=== PATIENT | female | born 1950 | race Caucasian/White ===

== ENCOUNTER → 2025-08-24 09:32 | Outpatient (REF) | payer MEDICARE, OTHER, SELFPAY ==
[2025-08-24 10:08] LABS: Hematocrit 45.0 % (37.0-47.0); Hemoglobin 15.1 g/dL (12.0-16.0); Mean Corp Hgb Conc. 33.6 g/dL (33.0-37.0); Mean Corpuscular Volume 93.0 fL (81.0-99.0); Nucleated Red Blood Cells % 0 %; Platelet Count 258 10^3/uL (130-400); Red Cell Dist. Width 12.3 % (11.5-14.5)
[2025-08-24 10:25] LABS: INR 1.38; PT 17.2 Sec (11.4-14.6)
[2025-08-24 10:48] LABS: ALT (SGPT) 22 U/L (0-35); AST (SGOT) 26 U/L (14-36); Albumin 4.7 g/dl (3.5-5.0); Alkaline Phosphatase 106 U/L (38-126); Blood Urea Nitrogen 17 mg/dl (7-17); Calcium 9.4 mg/dl (8.4-10.2); Carbon Dioxide 27 mmol/L (22-30); Chloride 105 mmol/L (98-107); Glucose 81 mg/dl (70-99); Magnesium 2.1 mg/dl (1.6-2.3); Potassium 4.1 mmol/L (3.5-5.1); Sodium 137 mmol/L (135-145); Total Protein 8.3 g/dl (6.3-8.2); eGFR > 60.00
== END ==
LOC: SDSPAT 09:32
PROVIDERS: ATTENDING PHYSICIAN Internal Medicine Cardiovascular Disease; FAMILY PHYSICIAN Nurse Practitioner Family; REFERRING PHYSICIAN Internal Medicine Cardiovascular Disease
DX: I48.19 Other persistent atrial fibrillation (principal)
CPT/HCPCS: 36415; 75572; 80053; 83735; 85025; 85610; 86850; 86900; 86901; 93005; Q9967

== ENCOUNTER 2025-09-07 06:39 | Day surgery (SDC) | payer MEDICARE, OTHER, SELFPAY ==
[2025-09-07] MEDS: ELIQUIS 5 MG PO (10:31)
== END 2025-09-07 10:46 | disposition home or self-care (01) ==
LOC: CATH 06:39
PROVIDERS: ATTENDING PHYSICIAN Nuclear Medicine Nuclear Cardiology; FAMILY PHYSICIAN Nurse Practitioner Family; OTHER PHYSICIAN Internal Medicine Cardiovascular Disease
DX: I08.3 Combined rheumatic disorders of mitral, aortic and tricuspid valves (principal); I70.0 Atherosclerosis of aorta; I08.8 Other rheumatic multiple valve diseases
CPT/HCPCS: 93312; 93320; 93325

== ENCOUNTER 2025-09-15 07:20 | Day surgery (SDC) | payer MEDICARE, OTHER, SELFPAY ==
[2025-08-24 09:43] VITALS: BMI 30.5
[2025-09-15] VITALS (21 sets, daily range): BP systolic 104–154; BP diastolic 65–97
[2025-09-15 10:45] LABS: ACT-LR - POC 314 Seconds (116-155)
--- NOTE | 2025-09-15 11:16 | ITS.CL.ABL ---
Dye Operator - Ablation
Ablation
Procedure Report:
ELECTROPHYSIOLOGY ABLATION STUDY
DATE:: September 15, 2025�����������������������������REFERRING: Dr. Sheldon Moya
INDICATION: Persistent supraventricular tachycardia in the form of atrial fibrillation.��Tachycardia induced cardiomyopathy
HISTORY: See H and P.� As above
ANTIARRHYTHMIC DRUG: Discussed class I class III antiarrhythmic drug therapy patient opted for procedure
PRE-PROCEDURE JOSELYN: No intracardiac thrombus on intracardiac ultrasound
PRESENTING RHYTHM: Atrial fibrillation
'TIME-OUT':��called and confirmed.
SEDATION/ANESTHESIA:��provided via the anesthesia department using general anesthesia (LMA).
INTRAVENOUS/ARTERIAL ACCESS:
Right femoral venous -8Fr
Left femoral venous - 8 Fr, 6 Fr
Sqcbhj-vm-gahek suture bilaterally
Ultrasound guidance for bilateral femoral vein access was utilized by me to obtain access with demonstration of normal anatomy
CHADS-VASC Score:
HAS-Bled Score
PROCEDURE:
1.��A decapolar CS catheter was placed within the CS for mapping and pacing.��This was also used as the reference catheter for the 3-D map.
2. The intracardiac ultrasound catheter was positioned in the RA to identify the FO for targeting of transseptal puncture, assist��in identification of the pulmonary vein ostia, monitoring pre and post ablation pulmonary vein flow velocities,
monitoring for 'bubble' formation during RF application as a sign of thermal injury,��and to monitor for pericardial effusion during mapping and ablation procedure.���Left atrial size, LV ejection fraction, and pulmonary vein flows were monitored
pre and post ablation procedure. The other valves were inspected and found to be free of significant regurgitation or stenosis. The patient did have prominent trabeculations in the septal and apical septal LV which was segmental.
3.��Half of the calculated heparin bolus was administered prior to the first transeptal puncture.��Transseptal puncture was performed to diagnose RA and LA pressure so that safety of LA mapping and ablation could be further assessed, and to access
the left atrium and pulmonary veins for mapping and ablation.��This entailed advancing an 16.8 Fijian sheath, RF wire with dilator into the superior vena cava and withdrawing both (monitoring intracardiac ultrasound, fluoroscopy and tip pressure)
with the tip oriented toward the atrial septum.��The fossa ovalis was engaged (indicated by sudden displacement of the sheath tip as well as tenting of the fossa seen on intracardiac ultrasound).��Left atrial access required a pass with the
Brockenbrough needle extended.��Left atrial catheter position was confirmed by pressure monitoring (RA mean pressure 4 mm Hg and LA mean presure 8 mm Hg and a procedure 10 mmHg with 1 L of hydration), LA saturation (99%),��as well as
fluoroscopy.��The sheath was advanced over the dilator and positioned in the left atrium.��This procedure was repeated for the Agilis sheath.��The remainder of the calculated heparin bolus was administered and heparin was
infused to maintain ACT at 300 -350 seconds throughout the case.
4.��RA pacing was performed via the proximal decapolar poles and LA pacing was performed via the distal decapolr poles.
5. A quadrapolar catheter was first positioned at the His position for His Bundle recording which was tagged via the 3-D Navex sytem, and then passed to the RVA for RV pacing and recording.
6. The Penta spline antegrade catheter placed in each of the LIPV, LSPV, RSPV and the RIPV.��
7.��Next, a 3-D map was created using Navex.���A 3-D reconstructed CT image was compared to the 3-D Navex map to assist in anatomic interpretation, mapping and ablation.��The CT image and the NavX image were fused.
8. A total of 52 lesions were given and all of in basket pose to each of the 4 pulmonary veins bringing about entrance block. Atrial fibrillation persisted and in flower pose roof posterior wall and left atrial floor in separate linear lesions was
addressed and there was entrance block in the roof posterior wall and floor of the left atrium. Atrial fibrillation persisted with additional substrate modification in the inferoseptal region and floor of the left atrium towards the left veins. We
then cardioverted the patient to sinus rhythm and entrance and exit block was confirmed in all 4 pulmonary veins as well as the roof posterior wall floor of the left atrium. EP study post cardioversion demonstrated no other nonpulmonary vein
triggers for atrial fibrillation.
9. Normal sinus and AV node function as noted.
TOTAL FLOURO TIME: 12.2 minutes
TOTAL RF DURATION: 0 minutes
REVERSAL OF HEPARIN: 35 mg of protamine, slow IV administration
COMPLICATIONS:
None
Intracardiac US shows no pericardial effusion post ablation.
SUMMARY:��
Complex left atrial mapping and ablation.
Isolation of all 4 pulmonary veins as well as the roof posterior wall floor of the left atrium.
RECOMMENDATIONS:
1. Ambulate in 4 hours
2. Resume anticoagulation
3.��Consider same-day discharge
4.� Outpatient echocardiogram in 3 months
Copy to: Dr. Sheldon Moya at [facility] cardiology
[2025-09-15] MEDS: TYLENOL 650 MG PO ×2 (13:23→18:03)
[2025-09-15] MEDS: ANESTHETIC LOZENGE 1 LOZENGE PO (14:31)
--- NOTE | 2025-09-15 14:51 | W.PN.UPDATE ---
Addendum entered and electronically signed by AZUL Hernandez 09/15/25 16:11:
Pt sats unable to go above 90% on RA, amb pulse ox 87-88% on RA, lungs clear but diminished b/l bases, denies sob with ambulation. She denies lung history and never smoked. On arrival sats 88% on RA, which may be her baseline as she has not seen PCP
in years. We will give 20iv lasix now and check CXR, will admit overnight for observation. Will monitor closely, plan reviewed with pt/ and Dr. Prado at bedside and agrees with plan.
Original Note:
Update Note
Progress Note Update
75 yo WF s/p PVI (same day). She denies cp, sob, luis fernando clears, EKG SR 1deg AVB, b/l groins c/d/i, soft. She will resume Eliquis tonight. Activity restrictions reviewed. She will f/u Dr. Moya in 1 mo. She is for d/c home after 4pm if groins stable.
[2025-09-15] MEDS: LASIX 20 MG IV (16:13)
--- NOTE | 2025-09-15 16:24 | PTCARENOTE ---
Pt's sats 88-89 RA. No FERNANDEZ, few bibase rales. Mendy [employer] SALES MANAGER notified, walked with pt on pulse ox. Sats 87 ambulatory. Lasix 20 MG IV given as ordered. Pt placed back on 1 L O2 and now sating 92-95 %. Dr. Prado also evaluated pt and updated family on
plan of care: CXR, diuresis and overnight stay. Family agreeable. All other systems benign. No bleeding with or post ambulation. Voided small amount.
[2025-09-15] MEDS: LIPITOR 20 MG PO (17:27)
[2025-09-15] MEDS: COZAAR 25 MG PO (17:27)
--- NOTE | 2025-09-15 17:53 | PTCARENOTE ---
Patient received from recovery s/p PVI. Right and left groin punctures with gauze and tegaderm C/D/I, no evidence of hematoma, no ecchymosis, surrounding area soft to palpation. Pedal pulses palpable. The patient denies chest pain or pressure.
Denies feeling lightheaded or dizzy. Denies SOB/FERNANDEZ. SR with first degree AVB on telemetry. Oxygen saturation initially 91% on 1L but increased to 94% on 1L. Patient OOB to chair, standby assist. Oriented to room and unit. Call dill within reach.
Care ongoing.
[2025-09-15] MEDS: ELIQUIS 5 MG PO (19:21)
--- NOTE | 2025-09-15 23:34 | PTCARENOTE ---
Pt NSR on monitor, VSS. Pt denies pain or SOB. 91% (finger) and 95%(ear) on 1L. B/L groin dsg C/D/I. Pt ambulates with x 1 assist. Call dill within reach
[2025-09-16 03:39] VITALS: BP 102/60
[2025-09-16 03:52] VITALS: BMI 30.3
[2025-09-16 04:18] LABS: Hematocrit 37.5 % (37.0-47.0); Hemoglobin 12.9 g/dL (12.0-16.0); Mean Corp Hgb Conc. 34.4 g/dL (33.0-37.0); Mean Corpuscular Volume 92.4 fL (81.0-99.0); Platelet Count 200 10^3/uL (130-400); Red Cell Dist. Width 12.8 % (11.5-14.5)
[2025-09-16 04:29] LABS: Blood Urea Nitrogen 20 mg/dl (7-17); Calcium 9.0 mg/dl (8.4-10.2); Carbon Dioxide 26 mmol/L (22-30); Chloride 106 mmol/L (98-107); Estimated Creatinine Clearance 58 ml/min; Glucose 121 mg/dl (70-99); Magnesium 2.0 mg/dl (1.6-2.3); Potassium 4.1 mmol/L (3.5-5.1); Sodium 135 mmol/L (135-145); eGFR > 60.00
[2025-09-16 08:00] VITALS: BP 101/52
--- NOTE | 2025-09-16 08:14 | PTCARENOTE ---
Patient reports no sob, pulse ox 97% on RA this morning. Bilateral groin sites are dry and intact, patient is for discharge today.
[2025-09-16] MEDS: ELIQUIS 5 MG PO (08:18)
--- NOTE | 2025-09-16 08:52 | W.PN.CARDCBS ---
Addendum entered and electronically signed by Dallas Prado MD 09/16/25 10:21:
patient seen and examined
overnight no issue
SR on tele
O2 sats 88-94%. On room air this morning. She tells me she feels better on room air this morning in sinus
reviewed telemetry
exam:
heent ncat
jvp 6
cor regular
lungs ctab
abd soft nt nd
CDY: Sheldon Moya MD
75 y/o, recurrent symptomatic AFib associated w/fatigue. [id number]=5, maintained on eliquis. S/P PFA.
On arrival, pt was mildly hypoxic with O2Sat 88-92% on RA, improved to 95-96% w/2L. This persisted into recovery and she remained overnight for observation. Minimal response to IV lasix. CXR normal without acute process. O2 saturation remains 88-92%
on RA. She is asymptomatic and denies dyspnea, SOB.
IMPRESSION:
AFib
s/p PFA, 09/15/25
NICM
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
HTN
HLD
Obesity
PLAN:
Tele- NSR w/1st deg AVB, rare PVC, no acute changes
bilat groin sites stable
oob ambulating
Resumed eliquis last evening
Persistent low level hypoxia on RA but asymptomatic otherwise with normal CXR- will discuss with Dr. Moya at followup in 2 weeks and with PCP for pulm workup
Followup w/Dr. Moya as scheduled
home today
Original Note:
Today's Communication / Plan
-
outpt pulm workup for asymptomatic hypoxia
continue eliquis
followup w/Dr Moya in 2 weeks
Impression / Plan
-
PCP: ERIKA Krause
CDY: Sheldon Moya MD
75 y/o, recurrent symptomatic AFib associated w/fatigue. [id number]=4, maintained on eliquis. S/P PFA.
On arrival, pt was mildly hypoxic with O2Sat 88-92% on RA, improved to 95-96% w/2L. This persisted into recovery and she remained overnight for observation. Minimal response to IV lasix. CXR normal without acute process. O2 saturation remains 88-92%
on RA. She is asymptomatic and denies dyspnea, SOB.
IMPRESSION:
AFib
s/p PFA, 09/15/25
NICM
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
HTN
HLD
Obesity
PLAN:
Tele- NSR w/ deg AVB, rare PVC, no acute changes
bilat groin sites stable
oob ambulating
Resumed eliquis last evening
Persistent low level hypoxia on RA but asymptomatic otherwise with normal CXR- will discuss with Dr. Moya at followup in 2 weeks and with PCP for pulm workup
Followup w/Dr. Moya as scheduled
home today
Progress Note - Side Trimmer
Subjective
Date of Service: September 16, 2025
Denies cp/palps/dyspnea
oob ambulating
groin sites without pain
Objective
Labs:
09/16/25 03:44
09/16/25 03:44
Labs
Hgb 12.9 g/dL (12.0-16.0) 09/16/25 03:44
Hct 37.5 % (37.0-47.0) 09/16/25 03:44
Plt Count 200 10^3/uL (130-400) 09/16/25 03:44
Sodium 135 mmol/L (135-145) 09/16/25 03:44
Potassium 4.1 mmol/L (3.5-5.1) 09/16/25 03:44
BUN 20 mg/dl (7-17) H 09/16/25 03:44
Creatinine 0.8 mg/dL (0.6-1.0) 09/16/25 03:44
Glucose 121 mg/dl (70-99) H 09/16/25 03:44
Vital Signs and I&O:
Vital Signs
Temp Pulse Resp BP Pulse Ox
98.2 F 69 18 101/52 89
09/16/25 08:00 09/16/25 08:00 09/16/25 08:00 09/16/25 08:00 09/16/25 08:00
Vital Signs
Temp Pulse Resp BP Pulse Ox
98.2 F 69 18 101/52 89
09/16/25 08:00 09/16/25 08:00 09/16/25 08:00 09/16/25 08:00 09/16/25 08:00
Physical Exam
Physical Exam
AAOx3, MAEE 5/5
RRR S1 S2 no murmurs
CTA bilat, non labored
soft abd, + bs
bilat groin sites without ht/bleeding, non tender
bilat extremities w/palpable distal pulses, no edema
--- NOTE | 2025-09-16 09:04 | W.DS.TRANS ---
DC Summary - Lead Applications Developer
-
Discharge Instructions:
Discharge Diagnosis/Procedures Atrial fibrillation post ablation
Diet Low Cholesterol
Driving Restrictions No driving for 24 hours
Instructions:
Stand-Alone Forms: DC Instructions- Cath/EP Lab
Changes to Home Medications: No
Discharge Medications:
DC Medications w/original date entered in [employer]
apixaban 5 mg tablet (Eliquis) 5 mg PO BID 08/19/25
atorvastatin 20 mg tablet 20 mg PO QPM 08/19/25
calcium 500 mg (as carbonate)-vitamin D3 10 mcg (400 unit) tablet (Calcium 500 + D) 2 tab PO DAILY 08/19/25
losartan 25 mg tablet 25 mg PO QPM 08/19/25
Home Medication Changes
Pending Results: No
--- NOTE | 2025-09-16 10:43 | CM ---
pt is prev indep, lives withher husb in a 2 storyhome. no dc planning needs noted. plan is for dc to home today.
== END 2025-09-16 10:08 | disposition home or self-care (01) ==
LOC: CATH 07:20
PROVIDERS: Nurse Practitioner Adult Health; ATTENDING PHYSICIAN Internal Medicine Cardiovascular Disease; FAMILY PHYSICIAN Nurse Practitioner Family; OTHER PHYSICIAN Internal Medicine Cardiovascular Disease
DX: I48.19 Other persistent atrial fibrillation (principal); I42.8 Other cardiomyopathies; E78.5 Hyperlipidemia, unspecified; M19.90 Unspecified osteoarthritis, unspecified site; E66.9 Obesity, unspecified; Z68.30 Body mass index [BMI] 30.0-30.9, adult; Z79.899 Other long term (current) drug therapy; Z79.01 Long term (current) use of anticoagulants; I11.0 Hypertensive heart disease with heart failure; I44.0 Atrioventricular block, first degree; I44.5 Left posterior fascicular block; I47.10 Supraventricular tachycardia, unspecified; I49.3 Ventricular premature depolarization; I50.22 Chronic systolic (congestive) heart failure; R09.02 Hypoxemia; Z91.048 Other nonmedicinal substance allergy status; Z96.651 Presence of right artificial knee joint; Z98.51 Tubal ligation status
CPT/HCPCS: C1769; C1892; C1759; C1730; 71045; 80048; 83735; 85027; 85347; 86803; 86900; 86901; 93005; 93656; 93657; C1732; C1733; C1766; C1894